=== PATIENT | male | born 1985 | race Caucasian/White ===

== ENCOUNTER → 2018-11-25 | Outpatient (CLI) | payer BC, SELFPAY ==
[2017-07-18 09:43] VITALS: BMI 18.2
[2018-11-25 12:49] LABS: International Normalized Ratio 2.8; Prothrombin Time (Protime)PT. 29.2 SECONDS (11.7-14.9)
== END | disposition home or self-care (01) ==
LOC: LABSPEC 12:33
PROVIDERS: Family Provider Family Medicine; PCP Family Medicine; Referring Provider Internal Medicine Hematology & Oncology; Visit Provider Internal Medicine Hematology & Oncology
DX: I63.9 Cerebral infarction, unspecified (principal)
CPT/HCPCS: 85610

== ENCOUNTER → 2019-01-10 | Outpatient (CLI) | payer BC, SELFPAY ==
[2019-01-10 12:43] LABS: International Normalized Ratio 2.2; Prothrombin Time (Protime)PT. 24.4 SECONDS (11.7-14.9)
== END | disposition home or self-care (01) ==
LOC: LAB 12:06
PROVIDERS: Family Provider Family Medicine; PCP Family Medicine; Referring Provider Internal Medicine Hematology & Oncology; Visit Provider Internal Medicine Hematology & Oncology
DX: Z86.73 Personal history of transient ischemic attack (TIA), and cerebral infarction without residual deficits (principal)
CPT/HCPCS: 85610

== ENCOUNTER → 2019-02-12 | Outpatient (CLI) | payer BC, SELFPAY ==
[2017-07-18 09:43] VITALS: BMI 18.2
[2019-02-12 12:33] LABS: International Normalized Ratio 3.1; Prothrombin Time (Protime)PT. 31.9 SECONDS (11.7-14.9)
== END | disposition home or self-care (01) ==
LOC: LABSPEC 12:15
PROVIDERS: Family Provider Family Medicine; PCP Family Medicine; Referring Provider Internal Medicine Hematology & Oncology; Visit Provider Internal Medicine Hematology & Oncology
DX: Z86.73 Personal history of transient ischemic attack (TIA), and cerebral infarction without residual deficits (principal)
CPT/HCPCS: 85610

== ENCOUNTER → 2019-07-30 16:00 | Outpatient (CLI) | payer BC, SELFPAY ==
[2019-07-30 16:14] LABS: International Normalized Ratio 1.5; Prothrombin Time (Protime)PT. 17.5 SECONDS (11.7-14.9)
== END ==
PROVIDERS: Family Provider Family Medicine; PCP Family Medicine; Referring Provider Internal Medicine Hematology & Oncology; Visit Provider Internal Medicine Hematology & Oncology
DX: Z86.73 Personal history of transient ischemic attack (TIA), and cerebral infarction without residual deficits (principal)
CPT/HCPCS: 85610

== ENCOUNTER → 2019-08-08 15:26 | Outpatient (CLI) | payer BC, SELFPAY ==
[2017-07-18 09:43] VITALS: BMI 18.2
[2019-08-08 15:53] LABS: International Normalized Ratio 2.4; Prothrombin Time (Protime)PT. 26.5 SECONDS (11.7-14.9)
== END ==
PROVIDERS: Family Provider Family Medicine; PCP Family Medicine; Referring Provider Internal Medicine Hematology & Oncology; Visit Provider Internal Medicine Hematology & Oncology
DX: Z86.73 Personal history of transient ischemic attack (TIA), and cerebral infarction without residual deficits (principal)
CPT/HCPCS: 85610

== ENCOUNTER → 2019-08-21 14:02 | Outpatient (CLI) | payer BC, OTHER, SELFPAY ==
[2017-07-18 09:43] VITALS: BMI 18.2
[2019-08-21 14:48] LABS: International Normalized Ratio 2.7; Prothrombin Time (Protime)PT. 28.9 SECONDS (11.7-14.9)
== END ==
PROVIDERS: Family Provider Family Medicine; PCP Family Medicine; Referring Provider Internal Medicine Hematology & Oncology; Visit Provider Internal Medicine Hematology & Oncology
DX: I63.9 Cerebral infarction, unspecified (principal)
CPT/HCPCS: 85610

== ENCOUNTER → 2019-09-04 14:09 | Outpatient (CLI) | payer BC, OTHER, SELFPAY ==
[2019-09-04 14:29] LABS: Prothrombin Time (Protime)PT. 43.7 SECONDS (11.7-14.9)
[2019-09-04 14:43] LABS: International Normalized Ratio 4.6
== END ==
PROVIDERS: PCP Family Medicine; Referring Provider Internal Medicine Hematology & Oncology; Visit Provider Internal Medicine Hematology & Oncology
DX: D68.62 Lupus anticoagulant syndrome (principal)
CPT/HCPCS: 85610

== ENCOUNTER → 2019-09-11 | Outpatient (CLI) | payer BC, SELFPAY ==
[2017-07-18 09:43] VITALS: BMI 18.2
[2019-09-11 13:16] LABS: International Normalized Ratio 3.6
== END | disposition home or self-care (01) ==
LOC: LABSPEC 12:58
PROVIDERS: PCP Family Medicine; Referring Provider Internal Medicine Hematology & Oncology; Visit Provider Internal Medicine Hematology & Oncology
DX: D68.62 Lupus anticoagulant syndrome (principal)
CPT/HCPCS: 85610

== ENCOUNTER → 2019-09-29 | Outpatient (CLI) | payer BC, SELFPAY ==
[2017-07-18 09:43] VITALS: BMI 18.2
[2019-09-29 16:08] LABS: Prothrombin Time (Protime)PT. 37.1 SECONDS (11.7-14.9)
[2019-09-29 16:35] LABS: International Normalized Ratio 3.7
== END | disposition home or self-care (01) ==
LOC: LABSPEC 15:39
PROVIDERS: PCP Family Medicine; Referring Provider Internal Medicine Hematology & Oncology; Visit Provider Internal Medicine Hematology & Oncology
DX: D68.62 Lupus anticoagulant syndrome (principal)
CPT/HCPCS: 85610

== ENCOUNTER → 2019-10-14 | Outpatient (CLI) | payer BC, SELFPAY ==
[2017-07-18 09:43] VITALS: BMI 18.2
[2019-10-14 15:24] LABS: International Normalized Ratio 3.1; Prothrombin Time (Protime)PT. 32.3 SECONDS (11.7-14.9)
== END | disposition home or self-care (01) ==
LOC: LABSPEC 15:05
PROVIDERS: PCP Family Medicine; Referring Provider Internal Medicine Hematology & Oncology; Visit Provider Internal Medicine Hematology & Oncology
DX: D68.62 Lupus anticoagulant syndrome (principal)
CPT/HCPCS: 85610

== ENCOUNTER → 2019-10-24 | Outpatient (CLI) | payer BC, SELFPAY ==
[2019-10-24 14:22] LABS: Prothrombin Time (Protime)PT. 43.2 SECONDS (11.7-14.9)
[2019-10-24 14:39] LABS: International Normalized Ratio 4.5
== END | disposition home or self-care (01) ==
PROVIDERS: PCP Family Medicine; Referring Provider Internal Medicine Hematology & Oncology; Visit Provider Internal Medicine Hematology & Oncology
DX: D68.62 Lupus anticoagulant syndrome (principal)
CPT/HCPCS: 85610

== ENCOUNTER → 2019-10-31 | Outpatient (CLI) | payer BC, SELFPAY ==
[2017-07-18 09:43] VITALS: BMI 18.2
[2019-10-31 12:55] LABS: Prothrombin Time (Protime)PT. 31.1 SECONDS (11.7-14.9)
== END | disposition home or self-care (01) ==
LOC: LABSPEC 12:23
PROVIDERS: PCP Family Medicine; Referring Provider Internal Medicine Hematology & Oncology; Visit Provider Internal Medicine Hematology & Oncology
DX: D68.62 Lupus anticoagulant syndrome (principal)
CPT/HCPCS: 85610

== ENCOUNTER → 2019-11-14 | Outpatient (CLI) | payer BC, SELFPAY ==
[2019-11-14 09:33] LABS: Prothrombin Time (Protime)PT. 37.5 SECONDS (11.7-14.9)
[2019-11-14 09:44] LABS: International Normalized Ratio 3.8
== END | disposition home or self-care (01) ==
LOC: LABSPEC 09:11
PROVIDERS: PCP Family Medicine; Visit Provider Internal Medicine Hematology & Oncology
DX: D68.62 Lupus anticoagulant syndrome (principal)
CPT/HCPCS: 85610

== ENCOUNTER → 2019-11-28 | Outpatient (CLI) | payer BC, SELFPAY ==
[2017-07-18 09:43] VITALS: BMI 18.2
[2019-11-28 13:15] LABS: International Normalized Ratio 2.1
== END | disposition home or self-care (01) ==
LOC: LABSPEC 12:54
PROVIDERS: PCP Family Medicine; Referring Provider Internal Medicine Hematology & Oncology; Visit Provider Internal Medicine Hematology & Oncology
DX: D68.62 Lupus anticoagulant syndrome (principal)
CPT/HCPCS: 85610

== ENCOUNTER 2021-11-10 12:45 | Emergency (ER) | payer BC, SELFPAY ==
[2021-11-10 12:47] VITALS: BP 138/112; PULSE 93; RESP 16; TEMP 35.7; O2SAT 98; BMI 18.5
--- NOTE | 2021-11-10 12:58 | EKG12_ITS ---
Test Reason : Blood Pressure : / mmHG Vent. Rate : 082 BPM Atrial Rate : 082 BPM P-R Int : 136 ms QRS Dur : 098 ms QT Int : 360 ms P-R-T Axes : 088 092 075 degrees QTc Int : 420 ms Normal sinus rhythm Normal ECG Confirmed by CAMMIE AGUILERA MD ([id number]), advertising editor YUDI RAY ([id number]) on 11/11/2021 2:48:13 PM Referred By: KATIUSKA Confirmed By:CAMMIE AGUILERA MD
--- NOTE | 2021-11-10 12:59 | EDS_ITS ---
HPI History of Present Illness Chief Complaint: Chest Pain Informant: patient Onset/Context/Timing Onset: Days (3 days) Activity at onset: gradual Timing: Waxes and wanes Quality: Positive for Pressure Location: Left Parasternal Current Severity: Mild Maximum Severity: Mild Narrative Narrative: Patient presents with pressure to the left side of his chest for the past 3 days. Denies shortness of breath. He states first couple days it would just hit him in the afternoon. This morning he woke up with pain. He does have a history of lupus. He had a stroke 9 years ago and is currently on Coumadin. [facility] Medical History Asthma Lupus Stroke/cerebrovascular accident Home Medications hydroxychloroquine 200 mg PO BIDCM 05/17/13 [History Last Taken 05/17/13] warfarin [Coumadin] 6 mg PO SUMOWEFRSA 05/17/13 [History Last Taken 05/16/13] albuterol sulfate [Ventolin Hfa (SP)] 2 puff INHALATION Q4H PRN PRN 07/18/17 [History Last Taken Unknown] warfarin [Coumadin] 5 mg PO TUTH 11/10/21 [History Last Taken Unknown] Allergy/AdvReac Type Severity Reaction Status Date / Time cefaclor [From [facility]] Allergy Rash Verified 11/10/21 12:47 Social History Smoking Status: Never smoker ROS ROS ED Constitutional Constitutional ED: Denies chills or fever(s) Eyes Eyes: Denies change in vision ENT ENT ED: Denies sore throat Cardiovascular Cardiovascular: Reports chest pain Respiratory/Chest Respiratory/Chest: Denies cough or dyspnea Gastrointestinal Gastrointestinal: Denies abdominal pain, nausea or vomiting Genitourinary Genitourinary ED: Denies dysuria Musculoskeletal Musculoskeletal: Denies back pain or neck pain Integumentary Denies rash Neurologic Neurologic: Denies headache(s) or weakness Psychiatric Psychiatric: Denies anxiety or depression Allergic/Immunologic Allergic/Immunologic ED: Denies urticaria EXAM Physical Exam Const Vital Signs: 11/10/21 12:47 11/10/21 12:58 11/10/21 13:23 Temperature 96.3 F L Temperature Source Temporal Pulse Rate 93 83 Respiratory Rate 16 15 Respiratory Effort Normal Non-Labored Respiratory Pattern Normal Blood Pressure 138/112 H Blood Pressure Mean 120 Pulse Ox 98 98 Oxygen Delivery Method Room Air Room Air Room Air Positive well nourished and well developed General Appearance ED: well developed HEENT Reports moist mucous membranes normocephalic and atraumatic Eyes PERRL and EOMs intact bilaterally Neck supple Chest Wall inspection of chest normal Chest Narrative: Minimal tenderness to the left chest wall. No crepitus. No overlying skin change. Resp normal respiratory effort Effort and Inspection: respiratory distress Cardio regular rate and regular rhythm GI normal to inspection, nondistended, normoactive bowel sounds, soft to palpation and non-tender Extremity normal to inspection Neuro oriented x3 Sensorium / Orientation: awake and alert Psych mental status grossly normal Skin no rashes or lesions noted Heart Score History: Slightly/Non-Suspicious ECG: Normal Age: </= 45 years Risk Factors: No Risk Factors Troponin: </= Normal Limit Score: 0 MDM MDM MDM Narrative Medical decision making narrative: EKG, chest x-ray, lab work obtained. Lab Data Attestation: I reviewed the patient's lab results. Labs: Laboratory Results - last 24 hr 11/10/21 11/10/21 11/10/21 13:08 13:08 13:08 WBC 3.5 L RBC 5.41 Hgb 16.3 Hct 48.1 MCV 88.9 MCH 30.1 MCHC 33.9 RDW Std Deviation 37.4 RDW Coeff of [place] 11.8 Plt Count 148 L MPV 10.8 Immature Gran % (Auto) 0.000 Neut % (Auto) 54.9 Lymph % (Auto) 33.2 [place] % (Auto) 9.5 Eos % (Auto) 1.2 Baso % (Auto) 1.2 H Absolute Neuts (auto) 1.9 L Absolute Lymphs (auto) 1.15 Nucleated RBC % 0 PT 22.1 H INR 2.0 D-Dimer Quant (PE/DVT) < 0.27 L Sodium 137 Potassium 3.7 Chloride 104 Carbon Dioxide 29.0 Anion Gap 4 L BUN 14 Creatinine 1.24 Estim Creat Clear Calc 76.22 Est GFR (MDRD) Af Amer 86 Est GFR (MDRD) Non-Af 71 BUN/Creatinine Ratio 11.3 Glucose 106 Calcium 9.6 Troponin I High Sens < 3 L Radiography Chest X-Ray - ED: 1 View and Read by ED Physician Diagnostic Testing: Hyperinflation with no focal infiltrate. No pneumothorax. EKG Initial EKG: Attestation: I personally reviewed and interpreted this EKG as follows: Interpretation: Sinus Rhythm (Sinus 82 with no acute ischemia.) Treatment and Re-Evaluation Narrative: Repeat evaluation patient resting comfortably. Test results discussed with him. Lab work is normal including a negative D-dimer and troponin. INR is therapeutic at 2.0. Chest x-ray unremarkable. Patient will continue supportive care at home. Return instructions provided. Discharge Plan Triage Chief Complaint: Chest Pain ED Provider: Christelle Awad Dx/Rx/DC Orders Clinical Impression: Atypical chest pain Instructions: ED Chest Pain, Noncardiac Prescriptions: No Action warfarin [Coumadin] 6 MG tablet 6 mg PO SUMOWEFRSA RF: 0 hydroxychloroquine 200 MG tablet 200 mg PO BIDCM RF: 0 albuterol sulfate [Ventolin HFA] 1 INHALER inhaler 2 puff inhalation Q4H PRN PRN (Reason: Sob &/Or Wheezing) RF: 0 warfarin [Coumadin] 5 mg Tablet 5 mg PO TUTH RF: 0 Primary Care Provider: Minor Phillip Referrals: Minor Phillip MD [Primary Care Provider] - 1 Week if not improving Disposition Disposition: Home, Self Care
--- NOTE | 2021-11-10 13:12 | RAD_ITS ---
STUDY: X-RAY CHEST REASON FOR EXAM: Male, 35 years old. Chest pain TECHNIQUE: Single AP portable view of the chest. COMPARISON: Comparison is made with prior study dated 10/16/2012. FINDINGS: EKG electrodes are seen. Hyperinflation. The lungs are clear. There is no demonstrated pleural abnormality. Normal size heart. Normal mediastinum and chau. Normal visualized pulmonary arteries. Normal visualized aortic arch and descending thoracic aorta. Normal visualized thoracic spine. Normal visualized ribs, clavicles, and shoulders. There is no demonstrated abnormality of the visualized soft tissue structures of the upper abdomen. RAD/Chest 1 View (Portable) IMPRESSION: Hyperinflation. The lungs are clear. Electronically Signed: Raffaele Alston MD at 14:06 EDT ,
[2021-11-10 13:23] VITALS: PULSE 83; RESP 15; O2SAT 98
[2021-11-10 13:29] LABS: Absolute Lymphocyte Count 1.15 X10^3/uL (0.83-4.51); Absolute Neutrophil Count 1.9 X10^3/uL (2.0-7.7); Basophil# 0.04 X10^3/uL; Basophil% 1.2 % (0-1); Eosinophil# 0.04 X10^3/uL; Eosinophils% 1.2 % (0-5); Hematocrit 48.1 % (40-54); Hemoglobin 16.3 g/dL (13.0-16.5); Lymphocyte # 1.15 X10^3/ul (0.83-4.51); Lymphocyte % 33.2 % (19-41); Mean Corp Hgb Conc 33.9 g/dL (32-36); Mean Corpuscular Hgb 30.1 pg (27.0-32.0); Mean Corpuscular Volume 88.9 fL (80-94); Mean Platelet Vol. 10.8 fl (6.2-12.0); Monocyte# 0.33 X10^3/uL; Monocyte% 9.5 % (0-10); NRBC Flagged by Analyzer 0 % (0-5); Neutrophil % 54.9 % (47-70); Platelet Count 148 K/mm3 (150-450); RBC Distribution Width CV 11.8 % (11.6-14.6); RBC Distribution Width SD 37.4 fl (35.1-43.9); Red Blood Count 5.41 M/mm3 (4.6-6.2); White Blood Count 3.5 K/mm3 (4.4-11.0)
[2021-11-10 13:34] LABS: Prothrombin Time (Protime)PT. 22.1 SECONDS (11.7-14.9)
[2021-11-10 13:43] LABS: Anion Gap 4 (5-15); BUN 14 mg/dL (7-18); BUN/Creat Ratio 11.3 RATIO (10-20); Calcium,Total 9.6 mg/dL (8.5-10.1); Chloride 104 mmol/L (98-107); Creatinine, Serum 1.24 mg/dL (0.70-1.30); EST Glomerular Filtration Rate 71 mL/min (>60); Est Glom Filt Rate - Afr Amer 86 mL/min (>60); Estimated Creatinine Clearance 76.22 ml/min; Glucose 106 mg/dL (74-106); Potassium 3.7 mmol/L (3.5-5.1); Sodium Level 137 mmol/L (136-145); Troponin-I HS < 3 pg/mL (3.0-78.0)
[2021-11-10 13:46] LABS: D-Dimer Quantitative (DVT/PE) < 0.27 FEU/ug/m (0.27-0.49)
[2021-11-10 14:17] VITALS: BP 133/104; PULSE 75; RESP 14; O2SAT 96
== END 2021-11-10 14:18 | disposition home or self-care (01) ==
PROVIDERS: Emergency Provider Emergency Medicine; PCP Internal Medicine; Visit Provider Emergency Medicine
DX: R07.89 Other chest pain (principal); M32.9 Systemic lupus erythematosus, unspecified; J45.909 Unspecified asthma, uncomplicated; Z86.73 Personal history of transient ischemic attack (TIA), and cerebral infarction without residual deficits; Z79.01 Long term (current) use of anticoagulants
CPT/HCPCS: 71045; 80048; 84484; 85025; 85379; 85610; 93005; 99284; A4216

== ENCOUNTER → 2022-01-27 | Outpatient (CLI) | payer BC, SELFPAY ==
[2022-01-27 13:40] LABS: International Normalized Ratio 2.4; Prothrombin Time (Protime)PT. 26.1 SECONDS (11.7-14.9)
== END | disposition home or self-care (01) ==
LOC: LABSPEC 13:01
PROVIDERS: PCP Internal Medicine; Referring Provider Internal Medicine; Visit Provider Internal Medicine
DX: Z79.01 Long term (current) use of anticoagulants (principal)
CPT/HCPCS: 85610

== ENCOUNTER → 2022-03-31 | Outpatient (CLI) | payer BC, SELFPAY ==
[2022-03-31 13:34] LABS: International Normalized Ratio 2.9; Prothrombin Time (Protime)PT. 29.7 SECONDS (11.7-14.9)
== END | disposition home or self-care (01) ==
LOC: LABSPEC 13:17
PROVIDERS: PCP Internal Medicine; Referring Provider Internal Medicine; Visit Provider Internal Medicine
DX: Z79.01 Long term (current) use of anticoagulants (principal)
CPT/HCPCS: 85610

== ENCOUNTER 2025-05-24 11:52 | Emergency (ER) | payer BC, OTHER, SELFPAY ==
[2025-05-24 11:52] VITALS: BP 124/81; PULSE 76; RESP 16; TEMP 36.8; O2SAT 100; BMI 20.4
--- NOTE | 2025-05-24 12:21 | EDS_ITS ---
HPI History of Present Illness Chief Complaint: Laceration Narrative Narrative: Patient is a 39-year-old male presenting to the emergency department for a chin laceration. Patient states that he was hit in the lower chin/lip with a golf ball. States his son chipped a golf ball and it hit him in the mouth. He denies any other injuries. Denies LOC. He is on warfarin for a prior stroke. Unknown last tetanus shot. Tetanus Immunization: Unknown [facility] Medical History Lupus Stroke/cerebrovascular accident Asthma Home Medications ?Medication ?Instructions ?Recorded ?Last Taken ?Type hydroxychloroquine 200 mg tablet 200 mg PO BIDCM 05/1705/17/13 History warfarin 6 mg tablet (Coumadin) 6 mg PO SUMOWEFRSA 12/2305/16/13 History albuterol sulfate 90 mcg/actuation 2 puff inhalation Q 4H PRN PRN Sob 07/18/17 Unknown History aerosol inhaler (Ventolin HFA) &/Or Wheezing warfarin 5 mg tablet 5 mg PO TUTH 11/10/21 Unknow n History amoxicillin 875 mg-potassium 1 tab PO BID 7 days #14 t abs 05/24/25 Unknown Rx clavulanate 125 mg tablet cholecalciferol (vitamin D3) 25 1,000 unit PO DAILY Unknown History mcg (1,000 unit) capsule multivitamin (Daily Multi-Vitamin 1 tab PO DAILY 05/24 Unknown History tablet) Allergy/AdvReac Type Severity Reaction Status Date / Time cefaclor (From [facility]) Allergy Rash Verified 05/24/25 11:55 Social History Smoking Status: Never smoker ROS ROS ED ROS Narrative see HPI EXAM Physical Exam Narrative Exam Narrative: Vital signs: Reviewed General: Alert and orientedx3. No acute distress HEENT: Head is normocephalic and atraumatic, sinuses nontender, pupils equal round and reactive. Nares are patent. Oropharynx and throat exams normal. Half circular laceration to the left upper chin. It does not involve the lip or victor hugo border. On the inner oral mucosa on the left there is a connecting linear laceration about half a cm long. Dental exam is unremarkable. No tenderness to palpation. All teeth intact. Neck: Supple without lymphadenopathy nontender Cardiovascular: Regular rate and rhythm, no murmurs. No rubs or gallops. Normal S1 and S2 Respiratory: Clear to auscultation bilaterally. No wheezes, rales, rhonchi Abdominal: Soft and nontender. Normal bowel sounds. No guarding or rebound. Nonsurgical abdomen Extremities: No tenderness. No bruising. Normal range of motion. Normal sensation. Skin: No rash or redness. Neurological: Cranial nerves II through XII are grossly intact. Normal strength and sensation. Normal cerebellar function The rest of the physical exam is unremarkable Const Vital Signs: 05/24/25 11:52 05/24/25 13:18 Temperature 98.2 F 97.8 F Temperature Source Oral Pulse Rate 76 68 Respiratory Rate 16 15 Blood Pressure 124/81 H 133/81 H Blood Pressure Mean 95 98 Pulse Ox 100 100 Oxygen Delivery Method Room Air MDM MDM MDM Narrative Medical decision making narrative: Patient is a 39-year-old male presenting to the emergency department for a chin laceration. Patient was seen and examined. Vitals are stable. Patient resting in bed comfortably no acute distress. Patient's tetanus was updated. Given prophylactic antibiotics covering oral darell, Augmentin. Wound was copiously irrigated. No foreign body seen on wound exploration. Again there is no dental injuries. 3 6.0 Ethilon sutures were placed on the chin/lip outer laceration. 1 5.0 absorbable suture was placed in the inner oral mucosal wound. Wound edges all approximated well. Patient was prescribed Augmentin for home given the connecting wound with the oral mucosal cavity. Patient was instructed to have the sutures removed in 5 to 7 days. Instructed to watch the wounds for signs of infection including drainage, warmth or redness. Instructed to keep the wounds clean and dry. Patient discharged from the Emergency Department. I do not feel that the patient's evaluation reveals any acute reason for admission at this time. I instructed them to either follow-up with their primary care physician or promptly return to the Emergency Department for reevaluation should symptoms worsen or new symptoms develop. I explained what symptoms would indicate the need to return to the emergency department. Shared decision making was used. The patient voiced understanding of the treatment plan and is agreeable with it. Clinical impression Laceration of oral cavity Facial laceration History & Record Review Discussion w/independent historian: Patient and Significant other Discharge Plan Triage Chief Complaint: Laceration ED Provider: Marylin Alberts Dx/Rx/DC Orders Clinical Impression: Facial laceration, Laceration of oral cavity Instructions: ED Laceration, Chin, Suture or Tape, ED Laceration, Lip or Mouth Prescriptions: New amoxicillin-pot clavulanate 875-125 mg tablet 1 tab PO BID 7 Days Qty: 14 0RF No Action warfarin [Coumadin] 6 MG tablet 6 mg PO SUMOWEFRSA hydroxychloroquine 200 MG tablet 200 mg PO BIDCM albuterol sulfate [Ventolin HFA] 1 INHALER inhaler 2 puff inhalation Q4H PRN PRN (Reason: Sob &/Or Wheezing) warfarin [Coumadin] 5 mg Tablet 5 mg PO TUTH multivitamin [Daily Multi-Vitamin] Tablet 1 tab PO DAILY cholecalciferol (vitamin D3) 25 mcg (1,000 unit) capsule 1,000 unit PO DAILY Primary Care Provider: Minor Phillip Referrals: Minor Phillip MD [Primary Care Provider, Internal Medicine] - As soon as p ossible Activity Restrictions/Additional Instructions: Need to have the sutures removed on your chin and in 5 to 7 days. Watch the area both on the inside and outside for signs of infection including redness, drainage or warmth. Take the antibiotics as prescribed. Your evaluation in the Emergency Department did not reveal any acute reason for admission. However, I want to emphasize that you may be early in the course of a disease process or illness even if it is not present. For this reason you should follow-up within 24 hours for reevaluation with either your primary care physician or if necessary back here in the Emergency Department. You should return to the Emergency Department immediately if your symptoms worsen or new symptoms develop. Print Language: Divehi Disposition Disposition: Home, Self Care Discharge Date/Time: 05/24/25 13:22
[2025-05-24] MEDS: Lidocaine 2% /Epi 1:100 (20ml) 20 ML VIAL 10 ML INFILT (13:16)
[2025-05-24 13:18] VITALS: BP 133/81; PULSE 68; RESP 15; TEMP 36.6; O2SAT 100
== END 2025-05-24 13:22 | disposition home or self-care (01) ==
PROVIDERS: Emergency Provider Student in an Organized Health Care Education/Training Program; PCP Internal Medicine; Visit Provider Student in an Organized Health Care Education/Training Program
DX: S01.81XA Laceration without foreign body of other part of head, initial encounter (principal); Z79.01 Long term (current) use of anticoagulants; W21.04XA Struck by golf ball, initial encounter; Z86.73 Personal history of transient ischemic attack (TIA), and cerebral infarction without residual deficits; J45.909 Unspecified asthma, uncomplicated; Z23 Encounter for immunization; S01.512A Laceration without foreign body of oral cavity, initial encounter
CPT/HCPCS: 12011; 90471; 90715; 99282